=== PATIENT | male | born 1935 | race Caucasian/White ===

== ENCOUNTER → 2017-09-16 18:02 | Outpatient (CLI) | payer OTHER, SELFPAY ==
--- NOTE | 2017-09-16 18:14 | DI.RAD.S_ITS ---
PROCEDURE: XR HAND RT MIN 3V INDICATIONS: 82 year-old male with right hand pain after fall. TECHNIQUE: 3 views of the hand(s) acquired. COMPARISON: None. FINDINGS: Bones: No fractures or dislocations. Carpal bones are normally aligned. No suspicious bony lesions. Soft tissues: No suspicious soft tissue calcifications. IMPRESSION: No acute bony injuries of the right hand. Dictated by: Stanley Sunshine M.D. on 09/17/2017 at 7:42 Approved by: Stanley Sunshine M.D. on 09/17/2017 at 7:43
== END ==
PROVIDERS: Family Provider Family Medicine; PCP Family Medicine; Visit Provider Physician Assistant
DX: M79.641 Pain in right hand (principal); S69.91XA Unspecified injury of right wrist, hand and finger(s), initial encounter
CPT/HCPCS: 73130

== ENCOUNTER → 2017-09-24 10:11 | Outpatient (CLI) | payer OTHER, SELFPAY ==
[2017-09-24 11:03] LABS: Add Manual Diff / Slide Review NO; Basophils Percent Auto 0.6 % (0-2); Eosinophils Percent Auto 2.6 % (2-4); Hematocrit 40.5 % (41-53); Hemoglobin 13.5 g/dL (13.5-17.5); Mean Corpuscular HGB Conc 33.3 % (30-36); Mean Corpuscular Hemoglobin 29.1 PG (26-34); Mean Corpuscular Volume 87.4 fL (80-100); Monocytes Percent Auto 9.9 % (3-14); Neutrophils Absolute Auto 6400 /uL (3000-5900); Neutrophils Percent Auto 59.9 % (50-75); Platelet Count 477 X10^3/uL (150-400); Red Blood Cell Count 4.63 X10^6/uL (4.5-5.9); Red Cell Distribution Width 13.5 % (11.6-14.8); White Blood Cell Count 10.7 X10^3/uL (4.5-11.0)
[2017-09-24 11:17] LABS: Alanine Aminotransferase 30 IU/L (21-72); Albumin Globulin Ratio 1.3 (1.0-2.8); Alkaline Phosphatase 91 U/L (38-126); Aspartate Aminotransferase 24 IU/L (17-59); BUN Creatinine Ratio 18.8 (6-22); Bilirubin Total 0.5 mg/dL (0.2-1.3); Blood Urea Nitrogen 15 mg/dL (9-20); Calcium 9.9 mg/dL (8.4-10.2); Carbon Dioxide 22 mmol/L (22-32); Chloride 104 mmol/L (98-107); Estimated Glomerular Filt Rate > 60.0 mL/min (>60); Globulin 3.2 g/dL (1.7-4.1); Glucose 96 mg/dL (80-110); HEMOLYSIS 23 (0-50); Potassium 4.7 mmol/L (3.4-5.1); Sodium 139 mmol/L (137-145); Total Protein 7.2 g/dL (6.3-8.2)
[2017-09-24 11:32] LABS: Free T4, Direct Thyroxine 1.27 ng/dL (0.78-2.19)
[2017-09-24 11:46] LABS: Thyroid Stimulating Hormone 3.97 uIU/mL (0.47-4.68)
== END ==
PROVIDERS: Family Provider Family Medicine; PCP Family Medicine; Visit Provider Family Medicine
DX: R62.7 Adult failure to thrive (principal)
CPT/HCPCS: 36415; 80053; 84439; 84443; 85025

== ENCOUNTER 2017-10-02 15:55 | Emergency (ER) | payer OTHER, SELFPAY ==
--- NOTE | 2017-10-02 16:22 | DI.RAD.S_ITS ---
PROCEDURE: XR CHEST 1V INDICATIONS: History dementia and ALS not able to get out of bed TECHNIQUE: One view of the chest was acquired. COMPARISON: [facility], , CHEST 2 VIEW, 07/02/2017, 8:17. FINDINGS: Surgical changes and devices: None. Lungs and pleura: No pleural effusions or pneumothorax. Lungs are clear. Low lung volumes and scattered atelectasis. Mediastinum: Mediastinal contours appear normal. Heart size is normal. Bones and chest wall: No suspicious bony lesions. Overlying soft tissues appear unremarkable. IMPRESSION: No acute disease. Low lung volumes and scattered atelectasis Dictated by: Andrew Durbin M.D. on 10/02/2017 at 15:54 Approved by: Andrew Durbin M.D. on 10/02/2017 at 15:55
--- NOTE | 2017-10-02 16:22 | DI.CT.S_ITS ---
PROCEDURE: CT HEAD/BRAIN WO/W CON INDICATIONS: History of ALS and dementia not able to get up out of bed TECHNIQUE: 4.5 mm thick angled axial sections acquired from the foramen magnum to the vertex before and after the administration of intravenous contrast, with coronal and sagittal reformats. For radiation dose reduction, the following was used: automated exposure control, adjustment of mA and/or kV according to patient size. COMPARISON: None. FINDINGS: Image quality: Excellent. CSF Spaces: Basal cisterns are patent. No extra-axial fluid collections. Ventricles are extensively prominent with corresponding parenchymal volume loss. Prominent parenchymal volume loss is noted involving the bilateral temporal lobes and anterior bilateral frontal lobes. Brain: No midline shift. No intracranial bleeds or masses. No abnormal intracranial enhancement. Araujo-white interface appears normal. Confluent areas of low attenuation are seen within the periventricular white matter of the supratentorial brain. There also are areas of low attenuation identified involving the brainstem. Skull and face: Calvarium and visualized facial bones appear intact, without suspicious lesions. Sinuses: Visualized sinuses and mastoids are clear. IMPRESSION: 1. No acute intracranial hemorrhage. 2. Prominent parenchymal atrophy and corresponding chronic small vessel ischemic changes. Dictated by: Jb Terry M.D. on 10/02/2017 at 16:41 Approved by: Jb Terry M.D. on 10/02/2017 at 16:42
--- NOTE | 2017-10-02 16:24 | ED.NEUROSD ---
HPI - Neuro Symptoms/Deficit <LORIE Lopez - Last Filed: 10/02/17 22:12> General Chief Complaint: Weakness Stated Complaint: UTI SX Time Seen by Provider: 10/02/17 16:00 Source: family and EMS History of Present Illness HPI Narrative: 82-year-old male with history of ALS and dementia brought in by EMS as has not been able to get out of bed at over the past 4 days. is trying to get patient into care facility however care facility needs admission orders. He was seen recently and his neurologist and determined to have worsening ALS symptoms. She reports that he has not been able to get out of bed for the past 4 days with worsening weakness. No fevers or chills. Positive p.o. intake states she is having difficult time caring for him. Related Data Home Medications Medication Instructions Recorded Confirmed aspirin 81 mg PO BEDTIME #0 09/23/11 10/02/17 docusate sodium 100 mg PO BID #0 07/30/17 10/02/17 levothyroxine 75 mcg capsule 75 mcg PO BEDTIME 09/16/17 10/02/17 Previous Rx's Medication Instructions Recorded hydrocodone-acetaminophen [[place]] 1 tab PO Q4-6H PRN #10 tab 10/02/17 lorazepam [Ativan] 1 mg PO Q12H PRN #10 tab 10/02/17 Allergies Allergy/AdvReac Type Severity Reaction Status Date / Time No Known Drug Allergies Allergy Verified 09/24/17 09:28 Review of Systems <LORIE Lopez - Last Filed: 10/02/17 22:12> Constitutional Denies chills, Denies fever(s) and Reports weakness Eyes Denies change in vision, Reports eye discharge, Denies irritation and Denies loss of vision Cardiovascular Denies chest pain, Denies irregular heart rhythm, Denies lightheadedness, Denies palpitations, Denies dyspnea, Denies dyspnea on exertion and Denies orthopnea Respiratory Denies cough, Denies dyspnea, Denies dyspnea on exertion and Denies wheezing Gastrointestinal Gastrointestinal: Denies abdominal pain, Denies change in bowel habits, Denies diarrhea, Denies nausea and Denies vomiting Genitourinary Denies hematuria, Denies flank pain, Denies urinary incontinence and Denies urinary urgency Musculoskeletal Denies back pain, Denies muscle weakness, Denies numbness and Denies tingling Integumentary/Breasts Denies pruritus, Denies erythema, Denies rash and Denies wounds Neurologic Denies confusion, Denies loss of vision, Denies numbness, Denies tingling and Reports weakness Psychiatric Denies anxiety, Denies confusion, Denies depression, Denies homicidal ideation and Denies suicidal ideation Endocrine Denies palpitations Allergic/Immunologic Denies wheezing Exam <LORIE Lopez - Last Filed: 10/02/17 22:12> Initial Vital Signs Initial Vital Signs: Vital Signs Temperature 98.4 F 10/02/17 16:30 Pulse Rate 101 H 10/02/17 16:30 Respiratory Rate 18 10/02/17 16:30 Blood Pressure 169/93 H 10/02/17 16:30 Pulse Oximetry 96 10/02/17 16:30 Const General: healthy appearing, comfortable, well developed and No in distress Orientation: alert, awake, not oriented x3 and confused HENMT Mouth: oral mucosae normal and moist mucous membranes Eyes Sclera: sclerae normal Cornea: corneas normal Pupils: PERRL EOM: EOM intact bilaterally Resp Effort & Inspection: normal respiratory effort, able to speak in complete sentences, no respiratory distress and no use of accessory muscles Auscultation: clear to auscultation bilaterally Cardio Rate: regular rate Rhythm: regular rhythm Heart Sounds: no click, no gallops, no murmurs and no rubs Skin General: no rashes or lesions noted, No jaundice and No petechiae Neuro Sensory Exam: no sensory deficits noted <Chico Rascon DO - Last Filed: 10/03/17 08:06> Initial Vital Signs Initial Vital Signs: Vital Signs Temperature 98.4 F 10/02/17 16:30 Pulse Rate 101 H 10/02/17 16:30 Respiratory Rate 18 10/02/17 16:30 Blood Pressure 169/93 H 10/02/17 16:30 Pulse Oximetry 96 10/02/17 16:30 Course <LORIE Lopez - Last Filed: 10/02/17 22:12> Orders Ordered: ED Orders 10/02/17 16:22 CT head/brain wo/w con Stat XR chest 1V Stat 10/02/17 16:50 Complete Blood Count AUTO DIFF Stat Comprehensive Metabolic Panel Stat Troponin with CK Cardiac Panel Stat 10/02/17 17:05 Urinalysis and Microscopic Stat Vital Signs - 8 hr 10/02/17 16:30 10/02/17 17:51 10/02/17 19:06 Temperature 98.4 F Pulse Rate 101 H 92 H 97 H Respiratory Rate 18 18 Blood Pressure 169/93 H Blood Pressure [Right Arm] 151/94 H 162/93 H Pulse Oximetry 96 97 96 10/02/17 19:55 Temperature 98.4 F Pulse Rate 97 H Respiratory Rate 16 Blood Pressure Blood Pressure [Right Arm] 159/79 H Pulse Oximetry 97 <Chico Rascon DO - Last Filed: 10/03/17 08:06> Orders Ordered: ED Orders 10/02/17 16:22 CT head/brain wo/w con Stat XR chest 1V Stat 10/02/17 16:50 Complete Blood Count AUTO DIFF Stat Comprehensive Metabolic Panel Stat Troponin with CK Cardiac Panel Stat 10/02/17 17:05 Urinalysis and Microscopic Stat Vital Signs - 8 hr 10/02/17 16:30 10/02/17 17:51 10/02/17 19:06 Temperature 98.4 F Pulse Rate 101 H 92 H 97 H Respiratory Rate 18 18 Blood Pressure 169/93 H Blood Pressure [Right Arm] 151/94 H 162/93 H Pulse Oximetry 96 97 96 10/02/17 19:55 Temperature 98.4 F Pulse Rate 97 H Respiratory Rate 16 Blood Pressure Blood Pressure [Right Arm] 159/79 H Pulse Oximetry 97 MDM - Neuro Symptoms/Deficit <LORIE Lopez - Last Filed: 10/02/17 22:12> Lab Data Result diagrams: 10/02/17 16:50 10/02/17 16:50 Lab Results 10/02/17 10/02/17 10/02/17 Range/Units 16:50 16:50 17:05 WBC 10.9 (4.5-11.0) X10^3/uL RBC 4.80 (4.5-5.9) X10^6/uL Hgb 13.8 (13.5-17.5) g/dL Hct 41.0 (41-53) % MCV 85.6 (80-100) fL MCH 28.7 (26-34) PG MCHC 33.5 (30-36) % RDW 13.5 (11.6-14.8) % Plt Count 572 H (150-400) X10^3/uL Neut % (Auto) 66.5 (50-75) % Lymph % (Auto) 21.2 L (25-40) % Geary % (Auto) 10.3 (3-14) % Eos % (Auto) 1.2 L (2-4) % Baso % (Auto) 0.8 (0-2) % Neut # (Auto) 7200 H (6357-6424) /uL Sodium 140 (137-145) mmol/L Potassium 4.4 (3.4-5.1) mmol/L Chloride 103 (98-107) mmol/L Carbon Dioxide 24 (22-32) mmol/L BUN 14 (9-20) mg/dL Creatinine 1.00 (0.66-1.25) mg/dL Estimated GFR > 60.0 (>60) mL/min BUN/Creatinine Ratio 14.0 (6-22) Glucose 151 H (80-110) mg/dL Calcium 9.6 (8.4-10.2) mg/dL Total Bilirubin 0.6 (0.2-1.3) mg/dL AST 22 (17-59) IU/L ALT 23 (21-72) IU/L Alkaline Phosphatase 96 (38-126) U/L Total Creatine Kinase 37 L (55-170) U/L Troponin I < 0.012 (0.01-0.034) ng/mL Total Protein 7.7 (6.3-8.2) g/dL Albumin 4.1 (3.5-5.0) g/dL Globulin 3.6 (1.7-4.1) g/dL Albumin/Globulin Ratio 1.1 (1.0-2.8) Urine Color Yellow Urine Appearance Clear Urine pH 7.0 (4.5-8.0) Ur Specific [place] 1.010 (1.000-1.035) Urine Protein Negative (Negative) Urine Glucose (UA) Negative (Normal) g/dL Urine Ketones Negative (NEGATIVE) Urine Occult Blood 2+ H (Negative) Urine Nitrate Negative (Negative) Urine Bilirubin Negative (NEGATIVE) Urine Urobilinogen 1.0 (0.2) E.U./dL Ur Leukocyte Esterase Negative (NEGATIVE) Urine RBC 1-5/hpf (0-5/HPF) Urine WBC None seen (0-5/HPF) Urine Bacteria None seen (None) Ur Culture Indicated? Cult not indicated Micro UA Comment Not Reportable Imaging Data Chest x-ray: Radiologist's impression: PROCEDURE: XR CHEST 1V INDICATIONS: History dementia and ALS not able to get out of bed TECHNIQUE: One view of the chest was acquired. COMPARISON: [facility], , CHEST 2 VIEW, 07/02/2017, 8:17. FINDINGS: Surgical changes and devices: None. Lungs and pleura: No pleural effusions or pneumothorax. Lungs are clear. Low lung volumes and scattered atelectasis. Mediastinum: Mediastinal contours appear normal. Heart size is normal. Bones and chest wall: No suspicious bony lesions. Overlying soft tissues appear unremarkable. IMPRESSION: No acute disease. Low lung volumes and scattered atelectasis Dictated by: Andrew Durbin M.D. on 10/02/2017 at 15:54 Approved by: Andrew Durbin M.D. on 10/02/2017 at 15:55 CT scan - head: Radiologist's impression: PROCEDURE: CT HEAD/BRAIN WO/W CON INDICATIONS: History of ALS and dementia not able to get up out of bed TECHNIQUE: 4.5 mm thick angled axial sections acquired from the foramen magnum to the vertex before and after the administration of intravenous contrast, with coronal and sagittal reformats. For radiation dose reduction, the following was used: automated exposure control, adjustment of mA and/or kV according to patient size. COMPARISON: None. FINDINGS: Image quality: Excellent. CSF Spaces: Basal cisterns are patent. No extra-axial fluid collections. Ventricles are extensively prominent with corresponding parenchymal volume loss. Prominent parenchymal volume loss is noted involving the bilateral temporal lobes and anterior bilateral frontal lobes. Brain: No midline shift. No intracranial bleeds or masses. No abnormal intracranial enhancement. Araujo-white interface appears normal. Confluent areas of low attenuation are seen within the periventricular white matter of the supratentorial brain. There also are areas of low attenuation identified involving the brainstem. Skull and face: Calvarium and visualized facial bones appear intact, without suspicious lesions. Sinuses: Visualized sinuses and mastoids are clear. IMPRESSION: 1. No acute intracranial hemorrhage. 2. Prominent parenchymal atrophy and corresponding chronic small vessel ischemic changes. Dictated by: Jb Terry M.D. on 10/02/2017 at 16:41 Approved by: Jb Terry M.D. on 10/02/2017 at 16:42 ECG Data Interpretation: EKG shows sinus tachycardia. No ST elevation or depression. No ectopy. Ventricular rate of 102. Pr interval 139. QRS duration of 89. QT 325 MDM Narrative Medical decision making narrative: CBC and Chem panel was obtained was unremarkable. EKG shows sinus rhythm with no ST elevation or depression. No ectopy. Chest x-ray was obtained was negative for any acute findings head CT was obtained was also negative for any acute findings. Cardiac enzymes was negative. Signs and symptoms presents as progression of ALS and dementia. shelter is established however orders have not been written by primary care provider as of yet. Discussed case with hospitalist for admission to observation and then have orders written to have patient admitted Dr. Sullivan recommended I write the orders myself and have patient transported over to the longterm. Discussed the case with the nursing aide of nursing who said that they will accept the patient with a note saying admit to the longterm with home medications. Patient is transported to care facility via BLS. . [id number] Tylenol as needed for discomfort. Small amount of [place] is written to cover in the next few days for breakthrough pain. Recommend follow up with primary care provider for re-evaluation next week. For any worsening symptoms return to the emergency room. <Chico Rascon, - Last Filed: 10/03/17 08:06> Lab Data Lab Results 10/02/17 10/02/17 10/02/17 Range/Units 16:50 16:50 17:05 WBC 10.9 (4.5-11.0) X10^3/uL RBC 4.80 (4.5-5.9) X10^6/uL Hgb 13.8 (13.5-17.5) g/dL Hct 41.0 (41-53) % MCV 85.6 (80-100) fL MCH 28.7 (26-34) PG MCHC 33.5 (30-36) % RDW 13.5 (11.6-14.8) % Plt Count 572 H (150-400) X10^3/uL Neut % (Auto) 66.5 (50-75) % Lymph % (Auto) 21.2 L (25-40) % Geary % (Auto) 10.3 (3-14) % Eos % (Auto) 1.2 L (2-4) % Baso % (Auto) 0.8 (0-2) % Neut # (Auto) 7200 H (4595-5323) /uL Sodium 140 (137-145) mmol/L Potassium 4.4 (3.4-5.1) mmol/L Chloride 103 (98-107) mmol/L Carbon Dioxide 24 (22-32) mmol/L BUN 14 (9-20) mg/dL Creatinine 1.00 (0.66-1.25) mg/dL Estimated GFR > 60.0 (>60) mL/min BUN/Creatinine Ratio 14.0 (6-22) Glucose 151 H (80-110) mg/dL Calcium 9.6 (8.4-10.2) mg/dL Total Bilirubin 0.6 (0.2-1.3) mg/dL AST 22 (17-59) IU/L ALT 23 (21-72) IU/L Alkaline Phosphatase 96 (38-126) U/L Total Creatine Kinase 37 L (55-170) U/L Troponin I < 0.012 (0.01-0.034) ng/mL Total Protein 7.7 (6.3-8.2) g/dL Albumin 4.1 (3.5-5.0) g/dL Globulin 3.6 (1.7-4.1) g/dL Albumin/Globulin Ratio 1.1 (1.0-2.8) Urine Color Yellow Urine Appearance Clear Urine pH 7.0 (4.5-8.0) Ur Specific [place] 1.010 (1.000-1.035) Urine Protein Negative (Negative) Urine Glucose (UA) Negative (Normal) g/dL Urine Ketones Negative (NEGATIVE) Urine Occult Blood 2+ H (Negative) Urine Nitrate Negative (Negative) Urine Bilirubin Negative (NEGATIVE) Urine Urobilinogen 1.0 (0.2) E.U./dL Ur Leukocyte Esterase Negative (NEGATIVE) Urine RBC 1-5/hpf (0-5/HPF) Urine WBC None seen (0-5/HPF) Urine Bacteria None seen (None) Ur Culture Indicated? Cult not indicated Micro UA Comment Not Reportable Discharge Plan Departure Patient Disposition: Home, Self-Care Clinical Impression: Dementia, Failure to thrive in adult, ALS (amyotrophic lateral sclerosis) Discharge Date/Time: 10/02/17 20:05 Interventions: ED Discharge Assessment Last Done: 10/02/17 20:05 Instructions: Amyotrophic Lateral Sclerosis Activity Restrictions/Additional Instructions: EKG was obtained today and was unremarkable. Chest x-ray was negative for any acute findings. Laboratory results were also unremarkable. CT of the head was obtained and was negative for any acute findings. Signs and symptoms presents as progression of ALS and dementia. Admit to [facility]. Home medications as prescribed. Tylenol 325 as needed for discomfort Q 4 hr. For breakthrough pain and not covered by Tylenol use [place] as prescribed. For any worsening symptoms return to the emergency room. Follow up with primary care provider in the next few days for re-evaluation and adjustment of admission orders if needed. Prescriptions: New hydrocodone-acetaminophen [[place]] 5-325 mg tablet 1 tab PO Q4-6H PRN (Reason: pain) Qty: 10 RF: 0 lorazepam [Ativan] 0.5 mg tablet 1 mg PO Q12H PRN (Reason: anxiety) Qty: 10 RF: 0 No Action levothyroxine 75 mcg capsule 75 mcg PO BEDTIME RF: 0 aspirin 81 mg Tablet,Delayed Release (Dr/Ec) 81 mg PO BEDTIME Qty: 0 RF: 0 docusate sodium 100 MG tablet 100 mg PO BID Qty: 0 RF: 0 Referrals: Konstantin Florez MD [Primary Care Provider] - <Chico Rascon DO - Last Filed: 10/03/17 08:06> [facility] Attending Dory Attestation: I was available for consultation during this patient's emergency department encounter
--- NOTE | 2017-10-02 16:27 | ED_ITS ---
HPI - Neuro Symptoms/Deficit <LORIE Lopez - Last Filed: 10/02/17 22:12> General Chief Complaint: Weakness Stated Complaint: UTI SX Time Seen by Provider: 10/02/17 16:00 Source: family and EMS History of Present Illness HPI Narrative: 82-year-old male with history of ALS and dementia brought in by EMS as has not been able to get out of bed at over the past 4 days. is trying to get patient into care facility however care facility needs admission orders. He was seen recently and his neurologist and determined to have worsening ALS symptoms. She reports that he has not been able to get out of bed for the past 4 days with worsening weakness. No fevers or chills. Positive p.o. intake states she is having difficult time caring for him. Related Data Home Medications Medication Instructions Recorded Confirmed aspirin 81 mg PO BEDTIME #0 09/23/11 10/02/17 docusate sodium 100 mg PO BID #0 07/30/17 10/02/17 levothyroxine 75 mcg capsule 75 mcg PO BEDTIME 09/16/17 10/02/17 Previous Rx's Medication Instructions Recorded hydrocodone-acetaminophen [[place]] 1 tab PO Q4-6H PRN #10 tab 10/02/17 lorazepam [Ativan] 1 mg PO Q12H PRN #10 tab 10/02/17 Allergies Allergy/AdvReac Type Severity Reaction Status Date / Time No Known Drug Allergies Allergy Verified 09/24/17 09:28 Review of Systems <LORIE Lopez - Last Filed: 10/02/17 22:12> Constitutional Denies chills, Denies fever(s) and Reports weakness Eyes Denies change in vision, Reports eye discharge, Denies irritation and Denies loss of vision Cardiovascular Denies chest pain, Denies irregular heart rhythm, Denies lightheadedness, Denies palpitations, Denies dyspnea, Denies dyspnea on exertion and Denies orthopnea Respiratory Denies cough, Denies dyspnea, Denies dyspnea on exertion and Denies wheezing Gastrointestinal Gastrointestinal: Denies abdominal pain, Denies change in bowel habits, Denies diarrhea, Denies nausea and Denies vomiting Genitourinary Denies hematuria, Denies flank pain, Denies urinary incontinence and Denies urinary urgency Musculoskeletal Denies back pain, Denies muscle weakness, Denies numbness and Denies tingling Integumentary/Breasts Denies pruritus, Denies erythema, Denies rash and Denies wounds Neurologic Denies confusion, Denies loss of vision, Denies numbness, Denies tingling and Reports weakness Psychiatric Denies anxiety, Denies confusion, Denies depression, Denies homicidal ideation and Denies suicidal ideation Endocrine Denies palpitations Allergic/Immunologic Denies wheezing Exam <LORIE Lopez - Last Filed: 10/02/17 22:12> Initial Vital Signs Initial Vital Signs: Vital Signs Temperature 98.4 F 10/02/17 16:30 Pulse Rate 101 H 10/02/17 16:30 Respiratory Rate 18 10/02/17 16:30 Blood Pressure 169/93 H 10/02/17 16:30 Pulse Oximetry 96 10/02/17 16:30 Const General: healthy appearing, comfortable, well developed and No in distress Orientation: alert, awake, not oriented x3 and confused HENMT Mouth: oral mucosae normal and moist mucous membranes Eyes Sclera: sclerae normal Cornea: corneas normal Pupils: PERRL EOM: EOM intact bilaterally Resp Effort & Inspection: normal respiratory effort, able to speak in complete sentences, no respiratory distress and no use of accessory muscles Auscultation: clear to auscultation bilaterally Cardio Rate: regular rate Rhythm: regular rhythm Heart Sounds: no click, no gallops, no murmurs and no rubs Skin General: no rashes or lesions noted, No jaundice and No petechiae Neuro Sensory Exam: no sensory deficits noted <Chico Rascon DO - Last Filed: 10/03/17 08:06> Initial Vital Signs Initial Vital Signs: Vital Signs Temperature 98.4 F 10/02/17 16:30 Pulse Rate 101 H 10/02/17 16:30 Respiratory Rate 18 10/02/17 16:30 Blood Pressure 169/93 H 10/02/17 16:30 Pulse Oximetry 96 10/02/17 16:30 Course <LORIE Lopez - Last Filed: 10/02/17 22:12> Orders Ordered: ED Orders 10/02/17 16:22 CT head/brain wo/w con Stat XR chest 1V Stat 10/02/17 16:50 Complete Blood Count AUTO DIFF Stat Comprehensive Metabolic Panel Stat Troponin with CK Cardiac Panel Stat 10/02/17 17:05 Urinalysis and Microscopic Stat Vital Signs - 8 hr 10/02/17 16:30 10/02/17 17:51 10/02/17 19:06 Temperature 98.4 F Pulse Rate 101 H 92 H 97 H Respiratory Rate 18 18 Blood Pressure 169/93 H Blood Pressure [Right Arm] 151/94 H 162/93 H Pulse Oximetry 96 97 96 10/02/17 19:55 Temperature 98.4 F Pulse Rate 97 H Respiratory Rate 16 Blood Pressure Blood Pressure [Right Arm] 159/79 H Pulse Oximetry 97 <Chico Rascon DO - Last Filed: 10/03/17 08:06> Orders Ordered: ED Orders 10/02/17 16:22 CT head/brain wo/w con Stat XR chest 1V Stat 10/02/17 16:50 Complete Blood Count AUTO DIFF Stat Comprehensive Metabolic Panel Stat Troponin with CK Cardiac Panel Stat 10/02/17 17:05 Urinalysis and Microscopic Stat Vital Signs - 8 hr 10/02/17 16:30 10/02/17 17:51 10/02/17 19:06 Temperature 98.4 F Pulse Rate 101 H 92 H 97 H Respiratory Rate 18 18 Blood Pressure 169/93 H Blood Pressure [Right Arm] 151/94 H 162/93 H Pulse Oximetry 96 97 96 10/02/17 19:55 Temperature 98.4 F Pulse Rate 97 H Respiratory Rate 16 Blood Pressure Blood Pressure [Right Arm] 159/79 H Pulse Oximetry 97 MDM - Neuro Symptoms/Deficit <LORIE Lopez - Last Filed: 10/02/17 22:12> Lab Data Result diagrams: 10/02/17 16:50 10/02/17 16:50 Lab Results 10/02/17 10/02/17 10/02/17 Range/Units 16:50 16:50 17:05 WBC 10.9 (4.5-11.0) X10^3/uL RBC 4.80 (4.5-5.9) X10^6/uL Hgb 13.8 (13.5-17.5) g/dL Hct 41.0 (41-53) % MCV 85.6 (80-100) fL MCH 28.7 (26-34) PG MCHC 33.5 (30-36) % RDW 13.5 (11.6-14.8) % Plt Count 572 H (150-400) X10^3/uL Neut % (Auto) 66.5 (50-75) % Lymph % (Auto) 21.2 L (25-40) % [place] % (Auto) 10.3 (3-14) % Eos % (Auto) 1.2 L (2-4) % Baso % (Auto) 0.8 (0-2) % Neut # (Auto) 7200 H (0768-8027) /uL Sodium 140 (137-145) mmol/L Potassium 4.4 (3.4-5.1) mmol/L Chloride 103 (98-107) mmol/L Carbon Dioxide 24 (22-32) mmol/L BUN 14 (9-20) mg/dL Creatinine 1.00 (0.66-1.25) mg/dL Estimated GFR > 60.0 (>60) mL/min BUN/Creatinine Ratio 14.0 (6-22) Glucose 151 H (80-110) mg/dL Calcium 9.6 (8.4-10.2) mg/dL Total Bilirubin 0.6 (0.2-1.3) mg/dL AST 22 (17-59) IU/L ALT 23 (21-72) IU/L Alkaline Phosphatase 96 (38-126) U/L Total Creatine Kinase 37 L (55-170) U/L Troponin I < 0.012 (0.01-0.034) ng/mL Total Protein 7.7 (6.3-8.2) g/dL Albumin 4.1 (3.5-5.0) g/dL Globulin 3.6 (1.7-4.1) g/dL Albumin/Globulin Ratio 1.1 (1.0-2.8) Urine Color Yellow Urine Appearance Clear Urine pH 7.0 (4.5-8.0) Ur Specific [place] 1.010 (1.000-1.035) Urine Protein Negative (Negative) Urine Glucose (UA) Negative (Normal) g/dL Urine Ketones Negative (NEGATIVE) Urine Occult Blood 2+ H (Negative) Urine Nitrate Negative (Negative) Urine Bilirubin Negative (NEGATIVE) Urine Urobilinogen 1.0 (0.2) E.U./dL Ur Leukocyte Esterase Negative (NEGATIVE) Urine RBC 1-5/hpf (0-5/HPF) Urine WBC None seen (0-5/HPF) Urine Bacteria None seen (None) Ur Culture Indicated? Cult not indicated Micro UA Comment Not Reportable Imaging Data Chest x-ray: Radiologist's impression: PROCEDURE: XR CHEST 1V INDICATIONS: History dementia and ALS not able to get out of bed TECHNIQUE: One view of the chest was acquired. COMPARISON: [facility], , CHEST 2 VIEW, 07/02/2017, 8:17. FINDINGS: Surgical changes and devices: None. Lungs and pleura: No pleural effusions or pneumothorax. Lungs are clear. Low lung volumes and scattered atelectasis. Mediastinum: Mediastinal contours appear normal. Heart size is normal. Bones and chest wall: No suspicious bony lesions. Overlying soft tissues appear unremarkable. IMPRESSION: No acute disease. Low lung volumes and scattered atelectasis Dictated by: Andrew Durbin M.D. on 10/02/2017 at 15:54 Approved by: Andrew Durbin M.D. on 10/02/2017 at 15:55 CT scan - head: Radiologist's impression: PROCEDURE: CT HEAD/BRAIN WO/W CON INDICATIONS: History of ALS and dementia not able to get up out of bed TECHNIQUE: 4.5 mm thick angled axial sections acquired from the foramen magnum to the vertex before and after the administration of intravenous contrast, with coronal and sagittal reformats. For radiation dose reduction, the following was used: automated exposure control, adjustment of mA and/or kV according to patient size. COMPARISON: None. FINDINGS: Image quality: Excellent. CSF Spaces: Basal cisterns are patent. No extra-axial fluid collections. Ventricles are extensively prominent with corresponding parenchymal volume loss. Prominent parenchymal volume loss is noted involving the bilateral temporal lobes and anterior bilateral frontal lobes. Brain: No midline shift. No intracranial bleeds or masses. No abnormal intracranial enhancement. Araujo-white interface appears normal. Confluent areas of low attenuation are seen within the periventricular white matter of the supratentorial brain. There also are areas of low attenuation identified involving the brainstem. Skull and face: Calvarium and visualized facial bones appear intact, without suspicious lesions. Sinuses: Visualized sinuses and mastoids are clear. IMPRESSION: 1. No acute intracranial hemorrhage. 2. Prominent parenchymal atrophy and corresponding chronic small vessel ischemic changes. Dictated by: Jb Terry M.D. on 10/02/2017 at 16:41 Approved by: Jb Terry M.D. on 10/02/2017 at 16:42 ECG Data Interpretation: EKG shows sinus tachycardia. No ST elevation or depression. No ectopy. Ventricular rate of 102. Pr interval 139. QRS duration of 89. QT 325 MDM Narrative Medical decision making narrative: CBC and Chem panel was obtained was unremarkable. EKG shows sinus rhythm with no ST elevation or depression. No ectopy. Chest x-ray was obtained was negative for any acute findings head CT was obtained was also negative for any acute findings. Cardiac enzymes was negative. Signs and symptoms presents as progression of ALS and dementia. half-way is established however orders have not been written by primary care provider as of yet. Discussed case with hospitalist for admission to observation and then have orders written to have patient admitted Dr. Sullivan recommended I write the orders myself and have patient transported over to the half-way. Discussed the case with the nursing program chair of nursing who said that they will accept the patient with a note saying admit to the half-way with home medications. Patient is transported to care facility via BLS. . [id number] Tylenol as needed for discomfort. Small amount of [place] is written to cover in the next few days for breakthrough pain. Recommend follow up with primary care provider for re-evaluation next week. For any worsening symptoms return to the emergency room. <Chico Rascon, - Last Filed: 10/03/17 08:06> Lab Data Lab Results 10/02/17 10/02/17 10/02/17 Range/Units 16:50 16:50 17:05 WBC 10.9 (4.5-11.0) X10^3/uL RBC 4.80 (4.5-5.9) X10^6/uL Hgb 13.8 (13.5-17.5) g/dL Hct 41.0 (41-53) % MCV 85.6 (80-100) fL MCH 28.7 (26-34) PG MCHC 33.5 (30-36) % RDW 13.5 (11.6-14.8) % Plt Count 572 H (150-400) X10^3/uL Neut % (Auto) 66.5 (50-75) % Lymph % (Auto) 21.2 L (25-40) % [place] % (Auto) 10.3 (3-14) % Eos % (Auto) 1.2 L (2-4) % Baso % (Auto) 0.8 (0-2) % Neut # (Auto) 7200 H (7620-2257) /uL Sodium 140 (137-145) mmol/L Potassium 4.4 (3.4-5.1) mmol/L Chloride 103 (98-107) mmol/L Carbon Dioxide 24 (22-32) mmol/L BUN 14 (9-20) mg/dL Creatinine 1.00 (0.66-1.25) mg/dL Estimated GFR > 60.0 (>60) mL/min BUN/Creatinine Ratio 14.0 (6-22) Glucose 151 H (80-110) mg/dL Calcium 9.6 (8.4-10.2) mg/dL Total Bilirubin 0.6 (0.2-1.3) mg/dL AST 22 (17-59) IU/L ALT 23 (21-72) IU/L Alkaline Phosphatase 96 (38-126) U/L Total Creatine Kinase 37 L (55-170) U/L Troponin I < 0.012 (0.01-0.034) ng/mL Total Protein 7.7 (6.3-8.2) g/dL Albumin 4.1 (3.5-5.0) g/dL Globulin 3.6 (1.7-4.1) g/dL Albumin/Globulin Ratio 1.1 (1.0-2.8) Urine Color Yellow Urine Appearance Clear Urine pH 7.0 (4.5-8.0) Ur Specific [place] 1.010 (1.000-1.035) Urine Protein Negative (Negative) Urine Glucose (UA) Negative (Normal) g/dL Urine Ketones Negative (NEGATIVE) Urine Occult Blood 2+ H (Negative) Urine Nitrate Negative (Negative) Urine Bilirubin Negative (NEGATIVE) Urine Urobilinogen 1.0 (0.2) E.U./dL Ur Leukocyte Esterase Negative (NEGATIVE) Urine RBC 1-5/hpf (0-5/HPF) Urine WBC None seen (0-5/HPF) Urine Bacteria None seen (None) Ur Culture Indicated? Cult not indicated Micro UA Comment Not Reportable Discharge Plan Departure Patient Disposition: Home, Self-Care Clinical Impression: Dementia, Failure to thrive in adult, ALS (amyotrophic lateral sclerosis) Discharge Date/Time: 10/02/17 20:05 Interventions: ED Discharge Assessment Last Done: 10/02/17 20:05 Instructions: Amyotrophic Lateral Sclerosis Activity Restrictions/Additional Instructions: EKG was obtained today and was unremarkable. Chest x-ray was negative for any acute findings. Laboratory results were also unremarkable. CT of the head was obtained and was negative for any acute findings. Signs and symptoms presents as progression of ALS and dementia. Admit to [facility]. Home medications as prescribed. Tylenol 325 as needed for discomfort Q 4 hr. For breakthrough pain and not covered by Tylenol use [place] as prescribed. For any worsening symptoms return to the emergency room. Follow up with primary care provider in the next few days for re-evaluation and adjustment of admission orders if needed. Prescriptions: New hydrocodone-acetaminophen [[place]] 5-325 mg tablet 1 tab PO Q4-6H PRN (Reason: pain) Qty: 10 RF: 0 lorazepam [Ativan] 0.5 mg tablet 1 mg PO Q12H PRN (Reason: anxiety) Qty: 10 RF: 0 No Action levothyroxine 75 mcg capsule 75 mcg PO BEDTIME RF: 0 aspirin 81 mg Tablet,Delayed Release (Dr/Ec) 81 mg PO BEDTIME Qty: 0 RF: 0 docusate sodium 100 MG tablet 100 mg PO BID Qty: 0 RF: 0 Referrals: Konstantin Florez MD [Primary Care Provider] - <Chico Rascon DO - Last Filed: 10/03/17 08:06> [facility] Dory Attestation: I was available for consultation during this patient's emergency department encounter
[2017-10-02 16:30] VITALS: BP 169/93; PULSE 101; RESP 18; TEMP 36.9; O2SAT 96; BMI 25.1
[2017-10-02 17:05] LABS: Add Manual Diff / Slide Review NO; Basophils Percent Auto 0.8 % (0-2); Eosinophils Percent Auto 1.2 % (2-4); Hemoglobin 13.8 g/dL (13.5-17.5); Lymphocytes Percent Auto 21.2 % (25-40); Mean Corpuscular HGB Conc 33.5 % (30-36); Mean Corpuscular Hemoglobin 28.7 PG (26-34); Mean Corpuscular Volume 85.6 fL (80-100); Monocytes Percent Auto 10.3 % (3-14); Neutrophils Absolute Auto 7200 /uL (3000-5900); Neutrophils Percent Auto 66.5 % (50-75); Platelet Count 572 X10^3/uL (150-400); Red Cell Distribution Width 13.5 % (11.6-14.8); White Blood Cell Count 10.9 X10^3/uL (4.5-11.0)
[2017-10-02 17:14] LABS: Alanine Aminotransferase 23 IU/L (21-72); Albumin 4.1 g/dL (3.5-5.0); Albumin Globulin Ratio 1.1 (1.0-2.8); Alkaline Phosphatase 96 U/L (38-126); Aspartate Aminotransferase 22 IU/L (17-59); Bilirubin Total 0.6 mg/dL (0.2-1.3); Blood Urea Nitrogen 14 mg/dL (9-20); Calcium 9.6 mg/dL (8.4-10.2); Carbon Dioxide 24 mmol/L (22-32); Chloride 103 mmol/L (98-107); Creatine Kinase 37 U/L (55-170); Estimated Glomerular Filt Rate > 60.0 mL/min (>60); Globulin 3.6 g/dL (1.7-4.1); Glucose 151 mg/dL (80-110); HEMOLYSIS < 15 (0-50); Potassium 4.4 mmol/L (3.4-5.1); Sodium 140 mmol/L (137-145); Total Protein 7.7 g/dL (6.3-8.2)
[2017-10-02 17:24] LABS: Bacteria Urine None Seen; WBC Urine None Seen (0-5/HPF)
[2017-10-02 17:29] LABS: Appearance Urine UA CLEAR; Bilirubin Urine UA NEGATIVE (NEGATIVE); Color Urine UA YELLOW; Glucose Urine UA NEGATIVE (Normal); Ketones Urine UA NEGATIVE (NEGATIVE); Leukocyte Esterase Urine UA NEGATIVE (NEGATIVE); Nitrite Urine UA Negative (Negative); Occult Blood Urine UA 2+ (Negative); Protein Urine UA NEGATIVE (Negative)
[2017-10-02 17:31] LABS: Troponin I < 0.012 ng/mL (0.01-0.034)
[2017-10-02 17:40] LABS: RBC Urine 1-5/HPF (0-5/HPF)
[2017-10-02 17:41] LABS: Culture Indicated Urine Cult Not Indicated
[2017-10-02 17:51] VITALS: BP 151/94; PULSE 92; RESP 18; O2SAT 97
[2017-10-02 19:06] VITALS: BP 162/93; PULSE 97; O2SAT 96
[2017-10-02 19:55] VITALS: BP 159/79; PULSE 97; RESP 16; TEMP 36.9; O2SAT 97
== END 2017-10-02 20:05 | disposition home or self-care (01) ==
PROVIDERS: Emergency Provider Nurse Practitioner Family; Family Provider Family Medicine; PCP Family Medicine
DX: F03.90 Unspecified dementia, unspecified severity, without behavioral disturbance, psychotic disturbance, mood disturbance, and anxiety (principal); R62.7 Adult failure to thrive; G12.21 Amyotrophic lateral sclerosis
CPT/HCPCS: 36591; 70470; 71045; 80053; 81001; 82550; 82553; 84484; 85025; 93005; 93010; 99283; 99285